=== PATIENT | female | born 1960 | race Two or more races ===

== ENCOUNTER 2024-06-01 10:06 | Emergency (ER) | payer MEDICARE, MEDICAID, SELFPAY ==
[2024-06-01] VITALS (7 sets, daily range): BP systolic 135–181; BP diastolic 51–77; PULSE 61–74; RESP 16–18; TEMP 36.6–36.7; O2SAT 97–100; BMI 24.7
--- NOTE | 2024-06-01 10:13 | EKG_ITS ---
[facility] Test Date: 2024-06-01 Pat Name: SHEILA SANCHEZ Department: Room: - Gender: Female Document Control Associate: : 1960 Requested By: Sumeet Warren (GITA) Order Number: [id number] Reading MD: Sumeet Warren (EXCEL ANALYST) Measurements Intervals [place] Rate: 62 P: 62 PA: 137 QRS: 55 QRSD: 91 T: 39 QT: 438 QTc: 447 Interpretive Statements SINUS RHYTHM No previous ECG available for comparison /store/S0/[id number]/[id number]
--- NOTE | 2024-06-01 10:26 | PD.EDNV ---
Nausea/Vomit./Diarrhea-RME/HPI General Chief complaint: Dizziness Stated complaint: DIZZY, NAUSEA, VISION BLURRY X 3 DAYS Arrival date/time: 06/01/24 10:06 Related Data Previous Rx's ?Medication ?Instructions ?Recorded erythromycin 5 mg/gram (0.5 %) eye 0.5 inch ophthalmic (eye) BID 10 12/16/21 ointment days #3.5 grams polyvinyl alcohol 1.4 % eye drops 1 drp ophthalmic (eye) QID PRN dry 12/16/21 (Artificial Tears (polyvinyl eyes #15 mL alcohol)) prednisone 20 mg tablet See Taper PO QDAY #20 tabs 12/16/21 valacyclovir 1 gram tablet 1,000 mg PO TID #21 tabs 12/16/21 Allergies Allergy/AdvReac Type Severity Reaction Status Date / Time No Known Allergies Allergy Verified 06/01/24 10:10 ED Exam General General appearance: Present alert and in no apparent distress Head Head exam: Present atraumatic and normal inspection Eye Eye exam: Present normal appearance; Absent scleral icterus or conjunctival injection ENT ENT exam: Present normal exam Neck Neck exam: Present normal inspection Chest Chest inspection: Present normal inspection Respiratory Respiratory exam: Absent respiratory distress Cardiovascular Cardiovascular exam: Present regular rate and normal rhythm Extremities Exam Extremities exam: Present normal inspection Back Exam Back exam: Present full ROM Neurological Exam Neurological exam: Present alert and oriented X3 Psychiatric Psychiatric exam: Present normal affect and normal mood Skin Skin exam: Present warm, dry, intact and normal color Course Orders Category Date Time Status EKG (ED ONLY) *Do not use* NOW Care 06/01/24 10:13 Active EKG (ED Only) Stat Exams 06/01/24 10:13 Ordered Discharge Plan Prescriptions/Referrals Prescriptions/Med Rec: No Action erythromycin 5 mg/gram (0.5 %) ointment 0.5 inch ophthalmic (eye) BID 10 Days Qty: 3.5 1RF valacyclovir 1 gram tablet 1,000 mg PO TID Qty: 21 0RF polyvinyl alcohol [Artificial Tears (polyvin alc)] 1.4 % drops 1 drp ophthalmic (eye) QID PRN (Reason: dry eyes) Qty: 15 0RF Rx Instructions: right eye prednisone 20 mg tablet See Taper PO QDAY Qty: 20 0RF Taper: Prednisone Taper 20 mg DAILY for 2 Days and 0 Hour 5 mg DAILY for 10 Days and 0 Hour Patient/Caregiver Discharge Instructions Print Language: Irish
--- NOTE | 2024-06-01 10:26 | PD.EDRME ---
Rapid Medical Screening Exam RME Arrival date/time: 06/01/24 10:06 63-year-old female presents to the emergency department complains of dizziness headache and blurry vision ongoing x 3 days Chief Complaint: Dizziness
--- NOTE | 2024-06-01 10:31 | XR_ITS ---
Examination: CT brain head without contrast. 2-D sagittal coronal reconstructions Date and time of exam:June 01, 2024 1032 hours INDICATIONS: Generalized head pain dizziness onset today CTDI: vol (mGy):49.1 DLP: (mGycm):969 Technique: Multiple CT axial sections of the brain have been obtained, 5 mm slice thickness. Contrast has not been administered. 2-D sagittal, coronal reconstructions have been obtained Low dose protocols were performed. One or more of the following dose reduction techniques were used; automated exposure control, adjustment of the mA and/or KV according to patient size, use of iterative reconstruction technique. Findings: No significant ventricular enlargement. Intra-axial or extra-axial hemorrhage density is not seen. No mass effect or midline shift Basal cisterns are not remarkable. Fourth ventricle is midline. Cranial vault intact. Impression: Negative for acute hemorrhage, mass effect or midline shift Advise clinical correlation follow-up accordingly
[2024-06-01 11:06] LABS: Basophils % (Auto) 0 % (0-2.5); Eosinophils # (Auto) 0.1 Thou/mm3 (0.0-0.5); Eosinophils % (Auto) 2 % (0-10); Hematocrit 42.3 % (36.0-46.0); Hemoglobin 14.3 g/dL (12.0-16.0); Immature Granulocytes % (Auto) 0 % (0-0); Immature Granulocytes Auto 0.02 Thou/mm3 (0.00-0.00); Lymphocytes # (Auto) 2.5 Thou/mm3 (1.0-4.8); Lymphocytes % (Auto) 34 % (10-50); Mean Corpuscular HGB Conc 33.8 g/dl (31.0-37.0); Mean Corpuscular Hemoglobin 31.1 pg (25.0-35.0); Mean Corpuscular Volume 92 fL (80-100); Monocytes # (Auto) 0.5 Thou/mm3 (0.0-0.8); Monocytes % (Auto) 7 % (0-12); Neutrophils # (Auto) 4.2 Thou/mm3 (1.8-7.7); Neutrophils % (Auto) 57 % (37-80); Nucleated Red Blood Cell % 0 /100 WBC (0); Platelet Count 249 Thou/mm3 (140-440); RDW Standard Deviation 46.4 fL (36.4-46.3); White Blood Count 7.4 Thou/mm3 (3.6-11.0)
[2024-06-01 11:16] LABS: Partial Thromboplastin Time 23.7 Seconds (22.0-36.0); Prothrombin Time 10.9 Seconds (9.0-12.2)
[2024-06-01 11:20] LABS: B-Type Natriuretic Peptide 35 pg/mL (0-100)
[2024-06-01 11:21] LABS: Alanine Aminotransferase 27 U/L (10-49); Albumin, Serum 4.5 gm/dL (3.4-4.8); Albumin/Globulin Ratio 1.6 (1.2-2.2); Alkaline Phosphatase 92 U/L (46-116); Anion Gap 7 (7-16); Aspartate Amino Transferase 24 U/L (0-34); BUN/Creatinine Ratio 11 Ratio (12-20); Bilirubin,Total 0.7 mg/dL (0.3-1.2); Blood Urea Nitrogen 8 mg/dL (9-23); Calcium 9.1 mg/dL (8.3-10.6); Calcium (Corrected) 9.1 mg/dL (8.5-10.1); Carbon Dioxide 26.8 mMol/L (20.0-31.0); Chloride 107 mMol/L (98-107); Creatinine (Component) 0.7 mg/dL (0.6-1.3); Globulin 2.9 gm/dL (2.3-3.5); Glucose 112 mg/dL (74-106); Osmolality,Calculated 280 (275-295); Potassium 3.6 mMol/L (3.4-5.1); Sodium 141 mMol/L (136-145); Total Protein 7.4 gm/dL (5.7-8.2); Troponin I < 0.002 ng/mL (0.0-0.045); eGFR > 60 See Note
[2024-06-01 13:13] LABS: Collection Type, Urine Clean Catch
[2024-06-01 13:16] LABS: Bilirubin,Urine Negative (Negative); Blood,Urine Negative (Negative); Clarity,Urine Clear (Clear/Hazy); Color,Urine Colorless (Lt Yel-Yel); Glucose, Urine Negative (Negative); Ketones,Urine Negative (Negative); Leukocyte Esterase,Urine Negative (Negative); Nitrite,Urine Negative (Negative); PH,Urine 7.5 (5.0-7.0); Protein,Urine Negative (Neg - Trace); RBC,Urine < 1 /hpf (0-3); Specific Gravity,Urine 1.009 (1.001-1.035); Squamous Epithelial Cell,Urine 1 /hpf (0-5); Urobilinogen,Urine Negative mg/dL (0.0-1.0); WBC,Urine 1 /hpf (0-5)
--- NOTE | 2024-06-01 13:32 | PD.EDDIZZY ---
ED Dizzyness RME/HPI General Chief Complaint: Dizziness Stated Complaint: DIZZY, NAUSEA, VISION BLURRY X 3 DAYS Time Seen by Provider: 06/01/24 10:46 Arrival date/time: 06/01/24 10:06 Limitations: no limitations RME / HPI RME / HPI Narrative: 06/01/24 10:06 63-year-old female presents to the emergency department complains of dizziness headache and blurry vision ongoing x [address] CHAPPELL MAIN ED EVALUATION: 63 year old female who presents to the ED with a complaint of dizziness, described as a moving sensation, which began around 10 PM last night and has progressively worsened throughout the day. She reports accompanying symptoms of facial pressure and nausea. She denies any ear-related issues, such as hearing loss, tinnitus, or fullness. The patient also notes that she has experienced similar episodes of dizziness in the past, several years ago, but has not had any recent problems. She has no other associated symptoms at this time. Related Data Previous Rx's ?Medication ?Instructions ?Recorded erythromycin 5 mg/gram (0.5 %) eye 0.5 inch ophthalmic (eye) BID 10 12/16/21 ointment days #3.5 grams polyvinyl alcohol 1.4 % eye drops 1 drp ophthalmic (eye) QID PRN dry 12/16/21 (Artificial Tears (polyvinyl eyes #15 mL alcohol)) prednisone 20 mg tablet See Taper PO QDAY #20 tabs 12/16/21 valacyclovir 1 gram tablet 1,000 mg PO TID #21 tabs 12/16/21 azithromycin 250 mg tablet See Rx Instructions PO .COMPLEX #6 06/01/24 tabs Allergies Allergy/AdvReac Type Severity Reaction Status Date / Time No Known Allergies Allergy Verified 06/01/24 10:10 Review of Systems Review of Systems Narrative Review of Systems: GEN: No fever, no chills, no weight loss, +dizziness sensation EYES: No discharge, no visual changes, no pain HEENT: +facial pressure. No ear pain, no congestion, no sore throat PULM: No shortness of breath, no cough, no congestion CV: No chest pain, no dyspnea on exertion, no palpitations GI:+ nausea, no vomiting, no diarrhea, no pain, no constipation : No frequency, no urgency, no dysuria MUSC/SKEL: No joint pain, no back pain SKIN: No rash NEURO: No weakness, no headache Past Medical History Past Medical History CARDIAC: Negative Congestive Heart Failure RESPIRATORY: Negative Chronic Obstructive Pulmonary Disease (COPD) GENITOURINARY: Negative Renal Disease ENDOCRINE: Negative Diabetes Mellitus Type 1 or Diabetes Mellitus Type 2 Social History SMOKING STATUS: Never smoker ED Exam General Limitations: Present no limitations General appearance: Present alert and in no apparent distress Head Head exam: Present atraumatic and normocephalic Eye Eye exam: Present PERRL, EOMI and other (No nystagmus,, left medial portion damage due to solar exposure) ENT ENT exam: Present normal oropharynx, mucous membranes moist and other (Right TM slightly erythematous and retracted, left TM normal. ) Neck Neck exam: Present normal inspection, full ROM and trachea midline Chest Chest inspection: Present normal inspection and symmetric chest wall rise Respiratory Respiratory exam: Present normal lung sounds bilaterally Cardiovascular Cardiovascular exam: Present regular rate, normal rhythm and normal heart sounds Abdominal Exam Abdominal exam: Present soft and normal bowel sounds Extremities Exam Extremities exam: Present normal inspection and full ROM Back Exam Back exam: Present normal inspection and full ROM Neurological Exam Neurological exam: Present alert, oriented X3 and CN II-XII intact Psychiatric Psychiatric exam: Present normal affect and normal mood Skin Skin exam: Present warm, dry, intact and normal color Course Quality Measures none Orders Category Date Time Status Search Coordinator NOW Care 06/01/24 10:31 Completed EKG (ED ONLY) *Do not use* NOW Care 06/01/24 10:13 Completed Insert IV NOW Care 06/01/24 10:[address] head/brain wo con Stat Exams 06/01/24 10:31 Completed EKG (ED Only) Stat Exams 06/01/24 10:13 Draft US liver Stat Exams 06/01/24 15:02 Completed B-Type Natriuretic Peptide Stat Lab 06/01/24 10:30 Completed CBC Stat Lab 06/01/24 10:30 Completed Comprehensive Metabolic Panel Stat Lab 06/01/24 10:30 Completed Magnesium Stat Lab 06/01/24 10:30 Completed Partial Thromboplastin Time Stat Lab 06/01/24 10:30 Completed Prothrombin Time with INR Stat Lab 06/01/24 10:30 Completed Troponin I Stat Lab 06/01/24 10:30 Completed Urinalysis Stat Lab 06/01/24 13:00 Completed Reevaluation(s) Reevaluation #1: We reviewed all the results, analysis, and treatment plans. Patient is amenable to discharge. Strict return precautions were outlined. Patient was discharged in stable condition. Time: 17:20 Vital Signs Vital signs: Vital Signs Temperature 98.0 F 06/01/24 10:26 Pulse Rate 67 06/01/24 10:26 Respiratory Rate 18 06/01/24 10:26 Blood Pressure 147/74 H 06/01/24 10:26 Pulse Oximetry (%) 99 06/01/24 10:26 Oxygen Delivery Method Room Air 06/01/24 10:26 Pulse ox is 99% on room air which is adequate. Dizziness MDM Narrative MDM Narrative:: IJada, am scribing for and in the presence of Dr. Chappell. The patient is a 63-year-old female presenting with dizziness, facial pressure, and nausea, with a history of similar episodes in the past. Labs show elevated LFTs and imaging reveals cholelithiasis, which may be contributing to her symptoms. Given the absence of ear-related symptoms, vestibular causes are less likely. I consulted with surgeon Dr. Fagan who examined the patient in the ED. Stated at this time patient has no abdominal tenderness and has recommended outpatient follow-up with the PCP for further evaluation and management of the cholelithiasis and elevated LFTs. The patient was advised to monitor for worsening symptoms, particularly signs of acute cholecystitis, and was discharged with symptomatic treatment for nausea. Follow-up with the PCP is recommended for further assessment and potential surgical intervention. Patient data External records reviewed:: [facility] previous records (I reviewed ED visit on 12/16/2021) Clinical information provided by:: patient Social determinants that could affect healthcare access:: none Patient has the following chronic illnesses:: none reported How is presenting disease/condition affected by chronic disease/condition?: no chronic disease Evaluation data The following diagnostics were reviewed and interpreted by me:: lab results, radiology exam(s) and EKG tracing(s) (sinus rhythm, rate 62, normal axis, normal intervals, no acute ischemic changes, no STEMI) Lab and/or radiology exams considered but not ordered:: none Interpretation Summary: Ordering Physician: Sumeet Warren NP, NP Date of Service: 06/01/24 Procedure(s): CT head/brain wo con Accession Number(s): [id number] cc: Kelvin HAGAN),Sumeet PELAYO; Jann Munoz MD; NO PRIMARY/FAMILY,PHYSICIAN~ Examination: CT brain head without contrast. 2-D sagittal coronal reconstructions Date and time of exam:June 01, 2024 1032 hours INDICATIONS: Generalized head pain dizziness onset today CTDI: vol (mGy):49.1 DLP: (mGycm):969 Technique: Multiple CT axial sections of the brain have been obtained, 5 mm slice thickness. Contrast has not been administered. 2-D sagittal, coronal reconstructions have been obtained Low dose protocols were performed. One or more of the following dose reduction techniques were used; automated exposure control, adjustment of the mA and/or KV according to patient size, use of iterative reconstruction technique. Findings: No significant ventricular enlargement. Intra-axial or extra-axial hemorrhage density is not seen. No mass effect or midline shift Basal cisterns are not remarkable. Fourth ventricle is midline. Cranial vault intact. Impression: Negative for acute hemorrhage, mass effect or midline shift Advise clinical correlation follow-up accordingly Dictated By: Jann Munoz MD Signed By: <Electronically signed by Jann Munoz MD in [place]> 06/01/24 1111 Ordering Physician: Sarwat Chappell MD Date of Service: 06/01/24 Procedure(s): US liver Accession Number(s): [id number] cc: Sarwat Chappell MD; Jann Munoz MD; NO PRIMARY/FAMILY,PHYSICIAN~ Examination: Abdomen sonogram, Limited Date and time of exam: June 01, 2024 1539 hours INDICATIONS: Elevated liver function tests on laboratory examination today Technique: Real-time shen scale transabdominal sonographic images of the upper abdomen obtained. Findings: Multiple gallstones Gallbladder wall 0.3 cm possible edema Common bile duct 0.4 cm Pancreatic head 1.9 cm Liver 14.9 cm fatty infiltration no focal liver lesions Pancreatic head 1.9 cm Liver 14.9 cm fatty infiltration Normal hepatopedal portal venous flow Patent IVC IMPRESSION:: Cholelithiasis Suspicious for edema involving the gallbladder wall, consider MRCP follow-up Dictated By: Jann Munoz MD Signed By: <Electronically signed by Jann Munoz MD in [place]> 06/01/24 1610 Medications / Prescriptions Medications or Prescriptions considered but not ordered:: None Medication administrations:: None Consultations Consultation(s) initiated? (list below): Yes Consultation #1 (Physician, Specialty, Details): I spoke with surgeon Dr. Fagan. States because the patient at this time does not have any abdominal pain, can be discharged home and continue care on an outpatient basis. Will DC home. Time: 17:25 Diagnosis Dizziness Differential Diagnosis: adverse reaction to drug, benign paroxysmal positional vertigo, cerebrovascular accident and transient cerebral ischemia Most likely diagnosis given after review of the tests above:: Elevated LFT's acute right otitis media Admission Indicated Admission indicated?: not indicated Explain why admission is indicated or not indicated:: Does not meet admission criteria Admission Request Was there a request for admission?: No Disposition Plan Disposition Plan: Discharge Discharge Attestation Discharge Attestation: The patient and all family members were given an opportunity to ask questions and understood the discharge instructions. Discharge instructions specifically effects, indications for sooner follow up or return to the emergency department, and the expected course of current diagnosis. Patient condition: Stable Discharge Plan Plan Patient Disposition: HOME (Self Care) Prescriptions/Referrals Prescriptions/Med Rec: New azithromycin 250 mg tablet See Rx Instructions .ROUTE .COMPLEX Qty: 6 0RF Rx Instructions: For 250 mg dose pack: take 500 mg today (day 1), then 250 mg for 4 days (days 2-5) No Action erythromycin 5 mg/gram (0.5 %) ointment 0.5 inch ophthalmic (eye) BID 10 Days Qty: 3.5 1RF valacyclovir 1 gram tablet 1,000 mg PO TID Qty: 21 0RF polyvinyl alcohol [Artificial Tears (polyvin alc)] 1.4 % drops 1 drp ophthalmic (eye) QID PRN (Reason: dry eyes) Qty: 15 0RF Rx Instructions: right eye prednisone 20 mg tablet See Taper PO QDAY Qty: 20 0RF Taper: Prednisone Taper 20 mg DAILY for 2 Days and 0 Hour 5 mg DAILY for 10 Days and 0 Hour Referrals: No Primary/Family,Physician [Primary Care Provider] - In 1 week Problem List Clinical Impression: Elevated LFTs, Acute right otitis media Patient/Caregiver Discharge Instructions Education Materials: Anatomy of the Ear Additional Instructions: Follow up with your doctor within 4-5 days regarding elevated LFT's and reassessment for right otitis media. Return if you have any new or worsening symptoms. Print Language: Namibian Stand Alone Forms: [facility] Award Info., Patient Portal Info Letter
--- NOTE | 2024-06-01 15:02 | XR_ITS ---
Examination: Abdomen sonogram, Limited Date and time of exam: June 01, 2024 1539 hours INDICATIONS: Elevated liver function tests on laboratory examination today Technique: Real-time shen scale transabdominal sonographic images of the upper abdomen obtained. Findings: Multiple gallstones Gallbladder wall 0.3 cm possible edema Common bile duct 0.4 cm Pancreatic head 1.9 cm Liver 14.9 cm fatty infiltration no focal liver lesions Pancreatic head 1.9 cm Liver 14.9 cm fatty infiltration Normal hepatopedal portal venous flow Patent IVC IMPRESSION:: Cholelithiasis Suspicious for edema involving the gallbladder wall, consider MRCP follow-up
== END 2024-06-01 17:44 | disposition home or self-care (01) ==
PROVIDERS: Nurse Practitioner Primary Care; Emergency Provider Podiatrist Foot & Ankle Surgery
DX: H66.91 Otitis media, unspecified, right ear (principal); K80.20 Calculus of gallbladder without cholecystitis without obstruction; R79.89 Other specified abnormal findings of blood chemistry; R51.9 Headache, unspecified; R42 Dizziness and giddiness
CPT/HCPCS: 36415; 70450; 76705; 80053; 81001; 83735; 83880; 84484; 85025; 85610; 85730; 93005; 99284